=== PATIENT | female | born 1970 | race Caucasian/White ===

== ENCOUNTER → 2024-03-20 | Outpatient (REF) | payer OTHER | LOC: MRI 10:11 | PROVIDERS: ATTEND Internal Medicine | DX: S83.207A Unspecified tear of unspecified meniscus, current injury, left knee, initial encounter (principal) ==

== ENCOUNTER → 2024-10-21 | Day surgery (SDC) | payer OTHER ==
[~2024-10-21] MED LIST: ACETAMINOPHEN 1000 MG/100 ML 100 ML IV ONE; CLINDAMYCIN PHOS 900MG/ 50ML 50 ML IV ONE; DEXAMETHASONE SOD PHOS INJ 4 MG/ML SDV ONE; FAMOTIDINE 20 MG/2 ML VIAL IV ONE; FENTANYL CITRATE/PF 100MCG/2 ML INJ ONE; GLYCOPYRROLATE INJ 0.2 MG/ML VIAL ONE; IBUPROFEN600 MG PO; KETAMINE 50MG/5ML SYR ONE; KETOROLAC TROMETHAMINE 30 MG/ML VIAL ONE; LIDOCAINE HCL 2% LOCAL INJ 5 ML SDV VIAL INJ ONE; METHIMAZOLE10 MG PO; MIDAZOLAM HCL 2 MG/2 ML VIAL ONE; ONDANSETRON HCL INJ 2MG/ML 2ML 2 MG/ML VIAL ONE; PROPOFOL IV EMULSION 10 MG/ML 20 ML VIAL ONE; TYLENOL325 MG PO
[2024-10-21] MEDS: LACTATED RINGER'S 1,000 ML ONE (11:10)
[2024-10-21] MEDS: FENTANYL CITRATE/PF 100MCG/2 ML INJ ONE (13:50)
[2024-10-21] MEDS: HYDROCODONE/APAP 5MG-325MG TAB ONE (14:05)
[2024-10-21] MEDS: KETOROLAC TROMETHAMINE 30 MG/ML VIAL ONE (14:17)
[2024-10-21 15:05] VITALS: BP 119/72; PULSE 76; RESP 17; O2SAT 97
== END | disposition home or self-care (01) ==
LOC: OR 10:27
PROVIDERS: ATTEND Specialist
DX: S83.242A Other tear of medial meniscus, current injury, left knee, initial encounter (principal); M22.42 Chondromalacia patellae, left knee; E05.90 Thyrotoxicosis, unspecified without thyrotoxic crisis or storm; E66.01 Morbid (severe) obesity due to excess calories; W19.XXXA Unspecified fall, initial encounter; F17.210 Nicotine dependence, cigarettes, uncomplicated; Z88.6 Allergy status to analgesic agent; Z88.0 Allergy status to penicillin; Z01.810 Encounter for preprocedural cardiovascular examination; Z01.818 Encounter for other preprocedural examination; Z79.1 Long term (current) use of non-steroidal anti-inflammatories (NSAID); Z79.899 Other long term (current) drug therapy; Z68.41 Body mass index [BMI] 40.0-44.9, adult
CPT/HCPCS: 29881; 71046; 93005; J0131; J1100; J1885; J2003; J2250; J2405; J2704; J3010; J7121; J0690